=== PATIENT | female | born 1930 | race Caucasian/White ===

== ENCOUNTER 2017-01-31 07:05 | Outpatient (CLI) | payer MEDICARE, OTHER ==
[~2017-01-31] VITALS: Ht 177.8 cm; Wt 122.7 kg
[2017-01-31] MEDS ORDERED: BACTRIM DS TABL1 TAB PO (07:56)
[2017-01-31] MEDS ORDERED: LISINOPRIL10 MG PO (07:56)
[2017-01-31] MEDS ORDERED: OMEPRAZOLE40 MG PO (07:57)
[2017-01-31] MEDS ORDERED: HYDROCHLOROTH12.5 M1 PO (07:57)
[2017-01-31] MEDS ORDERED: COUMADIN3 MG PO (07:58)
[2017-01-31] MEDS ORDERED: K-DUR20 MEQ PO (07:58)
[2017-01-31 08:14] VITALS: BP 151/74; Ht 177.8 cm; Wt 122.7 kg
--- NOTE | 2017-01-31 08:59 | NUR ---
SPOKE WITH PHARMACIST, GEOVANNY, ABOUT THE RUN TIME OF GENTAMICIN. WAS TOLD THAT IT CAN BE INFUSED WITHIN 30 MINUTES. GENT INFUSING TO LEFT FA, IV, PT TOLERATING.
[2017-01-31 09:39] LABS: INR 2.7 (0.85-1.17); PROTIME 30.7 SECONDS (11.6-15.0)
== END 2017-01-31 09:45 | disposition home or self-care (01) ==
LOC: D.OPS 07:05 → D.LAB 07:05 → D.SDCHOLD 07:05 → D.LAB 08:00 → D.OPS 09:45
PROVIDERS: Internal Medicine Cardiovascular Disease
DX: Z79.01 Long term (current) use of anticoagulants (principal)

== ENCOUNTER 2017-06-08 23:11 | Observation (INO) | payer MEDICARE, OTHER ==
[~2017-06-08] VITALS: Ht 177.8 cm; Wt 77.3 kg
[~2017-06-08 23:11] MED LIST: BACTRIM DS TABL1 TAB PO; COUMADIN3 MG PO; HYDROCHLOROTH12.5 M1 PO; K-DUR20 MEQ PO; LISINOPRIL10 MG PO; OMEPRAZOLE40 MG PO
[2017-06-09 00:06] LABS: APPEARANCE HAZY (CLEAR); BILIRUBIN NEGATIVE (NEGATIVE); COLOR DK YELLOW (YELLOW); GLUCOSE NEGATIVE (NEGATIVE); KETONE NEGATIVE (NEGATIVE); LEUKOCYTE ESTERASE 2+ (NEGATIVE); NITRITE NEGATIVE (NEGATIVE); PROTEIN TRACE mg/dL (NEGATIVE); SPECIFIC GRAVITY 1.005 (1.005-1.020); UROBILINOGEN NORMAL (NORMAL)
[2017-06-09 00:07] LABS: BACTERIA MANY /hpf (NONE SEEN); EPITHELIAL CELLS 0-5 /hpf (0-5); WHITE CELLS - URINE >50 /hpf (0-5)
[2017-06-09 00:22] LABS: BASOPHILS 0.8 % (0-2); EOSINOPHILS 4.7 % (0-7); HEMATOCRIT 37.3 % (36.0-48.0); HEMOGLOBIN 12.4 g/dL (12-16); LYMPHOCYTES 17.3 % (15-50); MCH 32.5 pg (26.0-34.0); MCHC 33.2 g/dL (31.0-37.0); MCV 97.6 fL (80.0-100.0); MONOCYTES 11.8 % (2-11); NEUTROPHILS 65.4 % (40-80); PLATELET COUNT 190 10x3/uL (130-400); RBC 3.82 10x6/uL (4.00-5.40); RDW 13.7 % (11.5-14.5); WBC 5.2 10x3/uL (4.8-10.8)
[2017-06-09 00:38] LABS: ALBUMIN 3.7 g/dL (3.4-5.0); ANION GAP 10.9 mmol/L (8-16); BILIRUBIN - TOTAL 0.3 mg/dL (0.2-1.3); CALCIUM 8.9 mg/dL (8.5-10.1); CARBON DIOXIDE 26.4 mmol/L (21.0-32.0); CREATININE - SERUM 1.8 mg/dL (0.6-1.3); MAGNESIUM - SERUM 1.9 mg/dL (1.8-2.4); POTASSIUM - SERUM 4.3 mmol/L (3.5-5.1); PROTEIN - SERUM 6.4 g/dL (6.4-8.2)
[2017-06-09 03:32] VITALS: BP 116/49; Ht 177.8 cm; Wt 77.3 kg
--- NOTE | 2017-06-09 06:00 | NUR ---
PATIENT PULLED OUT HER IV. I TRIED TO START IV X'S 2 UNSUCCESSFUL ATTEMPTS.
--- NOTE | 2017-06-09 06:30 | NUR ---
ROBBIE DONAHUE TRIED TO START IV, UNSUCCESSFUL.
--- NOTE | 2017-06-09 07:25 | NUR ---
ROBBIE PEREZ WENT IN ROOM TO TRY TO START IV, PATIENT REFUSED.
--- NOTE | 2017-06-09 08:13 | NUR ---
PT VERY DISORIENTED THIS AM TO PLACE AND TIME. TRIED TO REORIENT BUT WILL NOT ANSWER QUESTIONS. TRYING TO SWING AT NURSES AND SPIT. KEEPS UNDRESSING SELF. BED ALARM ON FOR SAFETY AND NURSING STAFF STAYING AT BEDSIDE. CALL PLACE TO AND DR BHARDWAJ
--- NOTE | 2017-06-09 09:00 | NUR ---
RECIEVED PT DURING MORNING REPORT, PT BED ALARMING, WHEN ENTERING THE ROOM THE PT WAS ON THE SIDE OF BED, PT WAS VERY COMBATIVE AND UNCOOPERATIVE, SAT WITH PT UNTIL RELIEVED BY EFFIE CROOK RN, REFERRED TO NOTE ENTERED BY THAT NURSE. CALLED DR. LINARES AND RECIEVED ORDERS FOR IM HALDOL 5MG Q2 HOURS PRN FOR AGGITATION. MEDICATION ADMINISTRATION GIVEN. PT RETURNED TO BED WITH BED ALARM ON AND ALY ALARM. WILL CONTINUE TO MONITOR.
--- NOTE | 2017-06-09 09:31 | NUR ---
CM SPOKE WITH PATIENT'S SON (MAURA) SPOKE WITH HIM ABOUT THE PROCESS TO GET TO [facility]. I EXPLAINED TO HIM THAT I WOULD LIKE TO HAVE TABBITHA WITH [facility] CALL HIM AND GIVE HIM THE PROCESS TO GET HER ADMITTED. MAURA NUMBER [phone]
[2017-06-09] MEDS ORDERED: Levaquin PO (11:23)
[2017-06-09] MEDS ORDERED: HALDOL5 MG/ML IM (11:23)
[2017-06-09 12:48] VITALS: BP 145/75
--- NOTE | 2017-06-09 14:11 | NUR ---
REPORT CALLED TO ROBBIE CRUZ AT THIS TIME, PT AWAITING TRANSFER TO [facility].
--- NOTE | 2017-06-09 15:26 | NUR ---
PT DISCHARGED TO SNF AT THIS TIME.
== END 2017-06-09 15:27 | disposition short-term general hospital (02) ==
LOC: D.ER 23:11 → D.MS 06-09 01:40 → OBSVTIME 06-09 01:40 → D.MS 06-09 15:27
PROVIDERS: Emergency Medicine; ADMIT Family Medicine Adult Medicine
DX: N17.9 Acute kidney failure, unspecified (principal); E86.0 Dehydration; G30.1 Alzheimer's disease with late onset; F02.81 Dementia in other diseases classified elsewhere, unspecified severity, with behavioral disturbance; I10 Essential (primary) hypertension; I25.10 Atherosclerotic heart disease of native coronary artery without angina pectoris; I48.91 Unspecified atrial fibrillation; E72.4 Disorders of ornithine metabolism; K21.9 Gastro-esophageal reflux disease without esophagitis; I35.0 Nonrheumatic aortic (valve) stenosis; Z87.891 Personal history of nicotine dependence

== ENCOUNTER 2017-06-09 15:57 | Inpatient (IN) | payer MEDICARE, OTHER ==
[~2017-06-09] VITALS: Ht 177.8 cm; Wt 98.0 kg
--- NOTE | 2017-06-09 15:30 | NUR ---
PATIENT ADMITTED TO [facility] FROM MED 2 SHE HAS HAD INCREASED CONFUSION, SHE DOES HAVE A HX OF DEMENTIA, BUT SHE HAS RECENTLY HAD A UTI AND SHE HAS BECOME WORSE THEN THE UTI CLEARED PER HER PCP, BUT THEN THEY PUT IN A FLOEY CATH 4 DAYS AGO. PATIENT HAS HAD TO SELF CATH FOR ABOUT 20 YEARS. UNSURE REASON FOR INDWELLING CATH. PATIENT NOW HAS ANOTHER UTI. ON ADMIT PATIENT IS SLEEPING FROM A HALDOL INJECTION SHE RECEIVED THIS AM. FAMILY IS HERE WITH HER TO SIGN CONSENTS AND ANSWER QUESTIONS. FAMILY SAYS PATIENT GETS PARANOID, ACCUSATORY, SAYS SPOUSE IS TRYING TO KILL HER, SHE FIGHTS, SHE BITES, SHE HITS, CURSES, SHE HAS TRIED TO ESCAPE ON THE MED FLOOR, SHE DENIES DEMENTIA. NURSE GIVING REPORT SAYS PATIENT HAS BEEN FIGHTING AND PARANOID AND REFUSING MEDS SAYING NURSES ARE TRYING TO POISON HER. PATIENT DOES HAVE A SCAR FROM HEART SURGERY ON HER CHEST, SHE HAS A RIGHT SHOULDER SCAR FROM ROTATOR CUFF REPAIR, SHE HAS A SCAR TO LEFT HIO FROM HIP REPLACEMENT, BILAT LOWER EXTREMITIES SLIGHTLY EDEMATOUS.
[~2017-06-09 15:57] MED LIST changes: +HALDOL5 MG/ML IM; +Levaquin PO
[2017-06-09 18:12] VITALS: BP 140/83; BMI 31.4
[2017-06-09 19:58] VITALS: BP 207/119
--- NOTE | 2017-06-10 04:27 | NUR ---
B) Patient alert and oriented to self, calm and quiet, keeping away from noise in day room, confused and unaware of surroundings, I) PRN medications only this shift, redirected as needed, R) Calm and cooperative, resting in bed now, P) Contine plan of care.
[2017-06-10 06:48] LABS: INR 1.97 (0.85-1.17); PROTIME 22.4 SECONDS (11.6-15.0)
[2017-06-10 06:59] LABS: HEMOGLOBIN A1C 6.5 % (4.8-6.0)
[2017-06-10 07:11] LABS: CHOL - HDL RATIO 2.4 ratio (2.3-4.1); LDL-HDL RATIO 1.2 ratio (1.5-3.5); THYROID STIMULATING HORMONE 3.17 uIU/mL (0.36-3.74)
[2017-06-10 09:50] VITALS: BP 154/82
[2017-06-10 13:30] VITALS: BMI 31.2
[2017-06-10 20:37] VITALS: BP 173/111
[2017-06-10 20:55] VITALS: BP 173/111
--- NOTE | 2017-06-11 04:19 | NUR ---
B) patient alert and oriented to self, unaware of where she is or why she is here, watching TV, very confused, asking for her at times, I) Administered scheduled medications, monitored for safety and falls, redirected as needed, R) Medication compliant, poor retention of information, difficult to orient to plance, P) Continue plan of care.
[2017-06-11 07:00] VITALS: BP 159/86
--- NOTE | 2017-06-11 13:42 | NUR ---
ALERT AND ORIENTED TO SELF,HOSPITAL AND YEAR.DOES NOT KNOW WHY SHE IS HERE. HAS CHRONIC GAGNON BUT DOES NOT UNDERSTAND URINE FLOWS CONTINUOUSLY THROUGH IT. REQUIRES ASSIST OF 2 TO TRANSFER FROM CHAIR TO WC.NO AGGRESSION OBSERVED TODAY.WILL CONTINUE WITH PLAN OF CARE,MONITOR FOR CHANGES AND SAFETY.
[2017-06-11 20:50] VITALS: BP 168/81
--- NOTE | 2017-06-11 21:04 | NUR ---
RECEIVED IN BEDROOM. VERY CONFUSED. RESTING IN BED EYES OPEN. CALM AND COOPERATIVE WITH CARE AND ASSESSMENTS. NO SIGNS OF AGGRESSION. REDIRECT AND REORIENT NEEDED. RESTING IN BED EYES CLOSED AT THIS TIME. CONTINUE PLAN OF CARE
[2017-06-12 07:00] VITALS: BP 141/79
[2017-06-12 07:10] LABS: INR 1.65 (0.85-1.17); PROTIME 19.5 SECONDS (11.6-15.0)
[2017-06-12 11:11] LABS: FOLATE (FOLIC ACID) - SERUM 7.3 ng/mL (>3.0)
--- NOTE | 2017-06-12 13:45 | PSY ---
PATIENT NAME:WINSTON HERMOSILLO MEDICAL RECORD: [id number] : 32 LOCATION:[facility] ADMISSION DATE: 06/09/17 ACCOUNT: [id number] PSYCHIATRIC EVALUATION DATE OF EVALUATION: 06/10/17 IDENTIFYING DATA: The patient is 86 years old and she is admitted to the hospital on a voluntary basis. CHIEF COMPLAINT: Aggression. HISTORY OF PRESENT ILLNESS: The patient apparently lives at home with her family. Apparently, she has had some trouble functioning for a long time, but recently has become increasingly confused and associated with the confusion, she has become aggressive, hitting, biting and scratching her family for reasons that are unknown. When asked about this, she becomes distressed and says it never happened. She cannot explain why someone would say that. PAST MEDICAL HISTORY: Significant for hypertension, atrial fibrillation, aortic stenosis, coronary artery bypass grafting, hysterectomy, coronary artery bypass grafting and valve replacement. PAST PSYCHIATRIC HISTORY: Unknown. The patient clearly has dementia and it is clearly not new. Yet, she is not taking anti-dementia medications and has no listing of this in the scant records that I have available to me. FAMILY HISTORY: Unknown. ALLERGIES: MORPHINE. CURRENT MEDICATIONS: Include Levaquin, lisinopril, hydrochlorothiazide, Coumadin and potassium. SOCIAL HISTORY: The patient is . She does have adult children who live with her. She has no history of drug or alcohol abuse. She has an indwelling Saldana catheter for reasons that I do not know and she cannot explain. She has no active thoughts of harming herself or others or psychotic symptoms. ASSETS: Supportive family members. LIABILITIES: Limited insight. DIAGNOSTIC IMPRESSION: AXIS I: Senile dementia of the Alzheimer's type with behavioral disturbances. AXIS II: None. AXIS III: Hypertension, coronary artery disease, aortic stenosis and atrial fibrillation. AXIS IV: Moderate stressors. AXIS V: Global assessment of functioning is 30. PLAN: At this time, the patient is admitted to the hospital secondary to aggressive behavior associated with a dementing illness. She will be treated with both memory enhancing and mood stabilizing medications. She will be monitored for clinical changes associated with the use of the medications. Her long-term prognosis is guarded. TRANSINT:[id number] Voice Confirmation ID: [id number] DOCUMENT ID: [id number] CRUZ TORRES MD at 1345 CC: [id number] DICTATION DATE: 06/10/17 1246 CLARIFICATION OPERATOR: 06/10/17 1802 ADM IN [place] [id number] [place] [id number]
--- NOTE | 2017-06-12 14:00 | NUR ---
ASSESSMENT COMPLETED. COMPLIANT WITH TAKING MEDS. CONTINUE PLAN OF CARE.
--- NOTE | 2017-06-12 14:08 | NUR ---
Nutrition Follow Up: Chart reviewed. Pt is eating 63% meal avg on a regular diet. Wt stable. Meds and labs reviewed. Rec continue current diet. RD following.
[2017-06-12 19:31] VITALS: BP 192/84
--- NOTE | 2017-06-12 23:18 | NUR ---
RECEIVED IN DAYROOM. SITTING IN RECLINER WITH PEERS BY SIDE. NOT SOCIALIZING. CALM AND COOPERATIVE WITH CARE AND ASSESSMENT. NO SIGNS OF AGGRESSION. GAGNON INTACT. NO SIGNS OF PARANOIA. REDIRECT AND REORIENT NEEDED. RESTING IN BED WITH EYES CLOSED AT THIS TIME. CONTINUE PLAN OF CARE.
[2017-06-13 03:09] LABS: RAPID PLASMA REAGIN Non Reactive (Non Reactive)
[2017-06-13 09:21] VITALS: BP 132/84
--- NOTE | 2017-06-13 10:00 | NUR ---
B) ALERT AND ORIENTED TO SELF ONLY, VERY CONFUSED AND UNAWARE OF SURROUNDINGS, BUT SHE IS CALM AND COOPERATIVE WITH ASSESSMENT AND CARE. I) ADMINISTERED SCHEDULED MEDICATIONS, REDIRECT AND REORIENT FREQUENTLY. R) MEDICATION COMPLIANT, ISOLATES FROM PEERS. P) CONTINUE PLAN OF CARE.
--- NOTE | 2017-06-13 14:04 | PN ---
PATIENT:WINSTON HERMOSILLO MEDICAL RECORD: [id number] LOCATION:[facility]112 ADMISSION DATE: 06/09/17 PROGRESS NOTE DATE OF SERVICE: 06/12/2017 SUBJECTIVE: The patient's case was discussed with staff. She has no new complaint. OBJECTIVE: The patient is in good behavioral control with limited insight about her condition. She is severely impaired cognitively. She continues to have some paranoid beliefs. Apparently, this is not new. When asked about it, she becomes very guarded. ASSESSMENT: No change in diagnoses. PLAN: The patient will be treated with Trilafon at a dose of 2 mg at bedtime. Trilafon is being used to treat her underlying paranoid symptoms. She will be monitored for clinical changes associated with its use. TRANSINT:[id number] Voice Confirmation ID: [id number] DOCUMENT ID: [id number] CRUZ TORRES MD at 1404 CC: [id number] DICTATION DATE: 06/12/17 1354 HOSPITAL ADMINISTRATOR: 06/12/17 1428 ADM IN [place] [id number] [place] [address]
[2017-06-13 20:00] VITALS: BP 130/79
--- NOTE | 2017-06-13 20:34 | NUR ---
RECEIVED IN DAYROOM. SITTING QUIETLY IN CHAIR. NOT SOCIALIZING WITH PEERS. CALM AND COOPERATIVE WITH CARE AND ASSESSMENTS. NO SIGNS OF AGGRESSION. GAGNON INTACT. REDIRECT AND REOIENT NEEDED. CONTINUE TO SIT QUIETLY IN CHAIR. CONTINUE PLAN OF CARE
[2017-06-14 09:23] VITALS: BP 117/68
--- NOTE | 2017-06-14 13:18 | NUR ---
B) PATIENT IS AWAKE AND ALERT SHE IS CONFUSED SHE ONLY KNOWS HER NAME, SHE HAS NO INSIGHT INTO SITUATION. SHE HAS A GAGNON AND IT IS DRAINING CLEAR BRANDON URINE. SHE CAN SELF PROPEL IN HER W/C. I) PROVIDE PRESCRIBED MEDS. R) PATIENT IS COMPLIANT WITH MEDS. P) CONTINUE POC.
--- NOTE | 2017-06-14 18:09 | NUR ---
PATIENT'S SPOUSE CALLED AND WANTED TO KNOW HOW SHE IS DOING EXPLAINED TO HIM THAT SHE REMAINS CONFUSED. PATIENT'S SPOUSE ASKED WHAT THE DR'S PRONOSIS OR TESTING REVEALED. EXPLAINED TO HIM THAT SHE SCORED 7/30 ON A DEMENTIA AND MENTAL EXAM CALLED [facility], ALSO EXPLAINED TO HIM THAT SHE WILL NEED 24/7 CARE AND CAN NOT BE ALONE. THIS NEWS UPSET HIM A BIT AND SAID "SO SHE WILL NEVER SNAP OUT OF THIS" EXPLAINED TO HIM THAT "NO, HER DEMENTIA IS PROGRESSING AND THAT HE SHOULD PROBABLY READ SOME MATERIAL ABOUT IT THE DISEASE PROCESS DOES PROGRESS" PATIENTS SPOUSE WAS SURPRISED AND SAID "SO THAT DOES NOT MEAN SHE WILL NEED TO HAVE SOMEONE WITH HER ALL THE TIME DOES IT?" EXPLAINED TO HIM "YES, SHE WILL PROBABLY NEED TO BE IN A FACILITY SHE CAN NOT BE ALONE D/T HER DECREASING MEMORY THAT FOR HER SAFETY IT IS BEST SO THAT SHE WILL NOT TRY TO RUN AWAY, FALL, OR TRY TO COOK." AGAIN THE INFORMATION UPSET HIM A GREAT DEAL, AFTER HE SPOKE TO ME HE DID SPEAK TO HIS .
[2017-06-14 20:00] VITALS: BP 146/84
--- NOTE | 2017-06-15 02:30 | NUR ---
B) Patient is alert and oriented to self only, exit seeking, trying to push outside doors open, very confued and unaware of where she is, I) Administered scheduled medications, monitored for safety, R) Medication compliant, resting quietly in bed P) Continue plan of care.
[2017-06-15 10:41] VITALS: BP 113/55
--- NOTE | 2017-06-15 12:47 | NUR ---
B) PATIENT IS CALM AND PLEASANT, SHE IS CONFUSED, SHE CAN NOT FOLLOW SIMPLE DIRECTION, SET AM PILLS IN FRONT OF HER WITH HER WATER AND PATIENT JUST LOOKED AT THEM, HAD TO ASSIST PATIENT BY GIVING HER ONE BY ONE WITH HER WATER. PATIENT CONTINUES TO HAVE A GAGNON CATH THAT IS DRAINING BRANDON URINE. PATIENT DOES STAND TO HELP TRANSFER. I) PROVIDE PRESCRIBED MEDS. R) PATIENT IS COMPLIANT WITH MEDS AND UNIT MILIEU. P) CONTINUE POC.
--- NOTE | 2017-06-15 13:25 | NUR ---
RD follow up note, chart reviewed pt currently with good po intake on regular diet. meds reviewed to include but not limited to warfarin, simethicone florjen. no new bm noted, brakedn 18 skin noted to have bruises on arms, and noted pt to be confused. no changes at this time. due to pt dx, if pt consumes less than 75% recommend offering shake. RD to follow
[2017-06-15 20:02] VITALS: BP 139/79
--- NOTE | 2017-06-16 03:35 | NUR ---
B) Patient is alert and oriented to self restless and anxious at times, ambulates in wheelchair. I) Administered scheduled medications, redirected as needed, monitored for safety. R) Medication compliant, cooperative with care and assessment, P) Continue plan of care.
[2017-06-16 07:31] LABS: INR 1.99 (0.85-1.17); PROTIME 22.6 SECONDS (11.6-15.0)
--- NOTE | 2017-06-16 08:23 | NUR ---
LATE ENTRY FROM 06/15 SW MET WITH PT'S SON AND TO DISCUSS DISCHARGE PLANS AND DISEASE PROCESS. PT'S , OLGA, VERBALIZED UNDERSTANDING OF PT'S CONDITION AND DISCUSSION.
[2017-06-16 08:31] VITALS: BP 96/69
--- NOTE | 2017-06-16 14:00 | NUR ---
PATIENT IS TRYING NOT TO STAND TO HELP STAFF TO ASSIST HER ON THE TOILET. TRIED TO EXPLAIN TO HER THAT SHE NEEDS TO STAND AND WALK OR SHE WILL LOSE THE MUSCLE USE IN HER LEGS. PATIENT SAYS "I KNOW, BUT I DON'T WANT TO WALK."
[2017-06-16 19:30] VITALS: BP 155/83
--- NOTE | 2017-06-17 04:05 | NUR ---
B) Patient is alert and oriented to self, calm and sitting in the day room, I) Administered scheduled medications, monitored for safety, R) Medication compliant, assisted with transfers, P) Continue plan of care.
[2017-06-17 08:00] VITALS: BP 90/60
--- NOTE | 2017-06-17 18:38 | NUR ---
ORIENTED TO SELF ONLY.HAS Neovacs PATENT TO GRAVITY.PROPELLS SELF IN WHEELCHAIR.NO COMBATIVENESS OR AGGRESSION OBSERVED.IS COMPLIANT WITH MEDS.WILL CONTINUE WITH PLAN OF CARE,MONITOR FOR CHANGES AND SAFETY.
[2017-06-17 19:30] VITALS: BP 117/65
--- NOTE | 2017-06-18 02:23 | NUR ---
B) Patient is alert and oriented to self, sitting quietly by herself I) Administered scheduled medications, monitored for safety R) Medications compliant, no behaviors noted, P) Continue plan of care.
[2017-06-18 07:47] VITALS: BP 119/66
[2017-06-18 13:00] VITALS: Ht 177.8 cm; Wt 98.0 kg
--- NOTE | 2017-06-18 17:19 | NUR ---
IS ORIENTED TO SELF ONLY.COMPLIANT WITH MEDS.NO AGGRESSION OBSERVED.VERY QUITE,SITS AND OBSERVES SURROUNDINGS.WILL CONTINUE WITH PLAN OF CARE,MONITOR FOR CHANGES AND SAFETY.
[2017-06-18 19:30] VITALS: BP 119/70
--- NOTE | 2017-06-18 20:50 | NUR ---
RECEIVED IN DAYROOM. SITTING IN RECLINER KEEPING TO HERSELF. NOT SOCIALIZING WITH STAFF OR PEERS. CALM AND COOPERATIVE WITH CARE AND ASSESSMENTS. NO SIGNS OF AGGRESSION. ENCOURAGE TO EXPRESS NEEDS. CONTINUES TO SIT QUIETLY IN RECLINER. CONTINUE PLAN OF CARE
[2017-06-19 08:46] VITALS: BP 102/64
--- NOTE | 2017-06-19 13:25 | NUR ---
Alert and oriented to self and some what to place, calm and cooperative with care. Medication compliant. No increased confusion or aggression. Sits quietly in W/C with no compliants or distress. Good behavior control with no incident. Continue with plan of care and monitoring behavior. Safety maintained.
[2017-06-19 16:47] LABS: INR 1.78 (0.85-1.17); PROTIME 20.7 SECONDS (11.6-15.0)
[2017-06-19 19:53] VITALS: BP 123/83
--- NOTE | 2017-06-19 20:50 | NUR ---
RECEIVED IN DAYROOM. SITTING IN A RECLINING CHAIR. NOT SOCIALIZING AT THIS TIME. CALM AND COOPERATIVE WITH CARE AND ASSESSMENTS. NO SIGNS OF AGGRESSION. REDIRECT AND REORIENT NEEDED. RESTING IN BED EYES CLOSED AT THIS TIME. CONTINUE PLAN OF CARE
[2017-06-20 07:00] VITALS: BP 113/70
--- NOTE | 2017-06-20 09:21 | NUR ---
B) PATIENT IS AWAKE AND ALERT, SHE DOES NOT FOLLOW DIRECTION WELL, SHE NEEDS SLOW, SIMPLE STEPS TO FOLLOW, PATIENT HAS NOT MADE ANY STATEMENTS THIS AM ABOUT DELUSIONS OR HALLUCINATIONS, WILL MONITOR SPRINKLER FITTER APPRENTICE SAID SHE DID LAST NIGHT. PATIENT HAS NOT BEEN AGGRESSIVE TODAY. SHE HAS AN INDWELLING GAGNON CATHETER THAT IS DRAINING CLEAR BRANDON UNRINE. PATIENT DOES WALK ON OCCASION WITH P.T. I) PROVIDE PRESCRIBED MEDS. R) PATIENT IS COMPLIANT WITH MEDS. P) CONTINUE POC.
--- NOTE | 2017-06-20 13:38 | PN ---
PATIENT:WINSTON HERMOSILLO MEDICAL RECORD: [id number] LOCATION:[facility] ADMISSION DATE: 06/09/17 PROGRESS NOTE DATE OF SERVICE: 06/19/2017 SUBJECTIVE: The patient's case was discussed with staff. She has no new complaint. OBJECTIVE: The patient is in good behavioral control, but very confused. She has almost no short term memory. She has not been aggressive and she has had no psychotic symptoms. ASSESSMENT: No change in diagnoses. PLAN: Current medicines and therapies have been reviewed and will be maintained. Her long-term prognosis is guarded. I anticipate she can be transitioned out of the hospital soon if this level of improvement is maintained. TRANSINT:[id number] Voice Confirmation ID: [id number] DOCUMENT ID: [id number] CRUZ TORRES MD at 1338 CC: [id number] DICTATION DATE: 06/19/17 1242 LIQUOR COMMISSIONER: 06/19/17 1305 ADM IN [place] [id number] [place] [address]
--- NOTE | 2017-06-20 13:38 | PN ---
PATIENT:WINSTON HERMOSILLO MEDICAL RECORD: [id number] LOCATION:[facility] ADMISSION DATE: 06/09/17 PROGRESS NOTE DATE OF SERVICE: 06/14/2017 SUBJECTIVE: The patient's case was discussed with staff. She has no new complaint. OBJECTIVE: The patient is severely impaired cognitively, but she is pleasant. She has very limited insight about her situation and generally is having difficulty following directions, but again she is not threatening or aggressive. ASSESSMENT: No change in diagnoses. PLAN: Brief supportive and educational interventions were made. Fpc prognosis is guarded. TRANSINT:[id number] Voice Confirmation ID: [id number] DOCUMENT ID: [id number] CRUZ TORRES MD at 1338 CC: [id number] DICTATION DATE: 06/14/17 1251 BOX SPRING FRAME BUILDER: 06/14/17 1341 ADM IN [place] [id number] [place] [id number]
--- NOTE | 2017-06-20 13:38 | PN ---
PATIENT:WINSTON HERMOSILLO MEDICAL RECORD: [id number] LOCATION:[facility] ADMISSION DATE: 06/09/17 PROGRESS NOTE DATE OF SERVICE: 06/15/2017 SUBJECTIVE: The patient's case was discussed with staff. She has no new complaint. OBJECTIVE: The patient is in good behavioral control. She has no thoughts of harming herself or others. She is severely impaired cognitively. ASSESSMENT: No change in diagnoses. PLAN: Brief supportive and educational interventions were made. Long-term prognosis is guarded. TRANSINT:[id number] Voice Confirmation ID: [id number] DOCUMENT ID: [id number] CRUZ TORRES MD at 1338 CC: [id number] DICTATION DATE: 06/15/17 1252 DIRECTOR OF SECURITY: 06/15/17 1306 ADM IN [facility] [address] [place] [address]
--- NOTE | 2017-06-20 13:38 | PN ---
PATIENT:WINSTON HERMOSILLO MEDICAL RECORD: [id number] LOCATION:[facility]112 ADMISSION DATE: 06/09/17 PROGRESS NOTE DATE OF SERVICE: 06/13/2017 SUBJECTIVE: The patient's case was discussed with staff. She has no new complaint. OBJECTIVE: The patient denies intent to harm herself or others. She is severely impaired cognitively. She did not display any paranoid symptoms today. ASSESSMENT: No change in diagnoses. PLAN: Supportive and educational interventions were made. Skilled Nursing prognosis is guarded. The patient is certainly in need of 80-bnwz-u-day supervision. She was tested by Dr. Andrews and scored in the severe range of impairment. TRANSINT:[id number] Voice Confirmation ID: [id number] DOCUMENT ID: [id number] CRUZ TORRES MD at 1338 CC: [id number] DICTATION DATE: 06/13/17 1418 AGRICULTURAL EQUIPMENT SALES ENGINEER: 06/13/17 1758 ADM IN [place] [id number] [place] [id number]
--- NOTE | 2017-06-20 13:38 | PN ---
PATIENT:WINSTON HERMOSILLO MEDICAL RECORD: [id number] LOCATION:[facility]112 ADMISSION DATE: 06/09/17 PROGRESS NOTE DATE OF SERVICE: 06/16/2017 SUBJECTIVE: The patient's case was discussed with staff. She has no new complaint. OBJECTIVE: The patient continues to have psychotic symptoms. She has very limited insight about her condition. ASSESSMENT: No change in diagnoses. PLAN: The patient is taking Trilafon for any psychotic affect. She has only had the medication for 2 nights. I will wait at least one more day before making an adjustment in that medication. TRANSINT:[id number] Voice Confirmation ID: [id number] DOCUMENT ID: [id number] CRUZ TORRES MD at 1338 CC: [id number] DICTATION DATE: 06/16/17 1247 DOBBY LOOMS PEGGER: 06/16/17 1411 ADM IN [facility] [address] [place] [address]
[2017-06-20] MEDS ORDERED: COUMADIN4 MG PO (14:05)
[2017-06-20] MEDS ORDERED: FLORAJEN3 CAPS460 MG PO (14:06)
[2017-06-20] MEDS ORDERED: MIRALAX17 GM PO (14:06)
[2017-06-20] MEDS ORDERED: NAMENDA5 MG PO (14:06)
[2017-06-20] MEDS ORDERED: PERPHENAZINE2 MG PO (14:06)
[2017-06-20] MEDS ORDERED: GAS-X80 MG PO (14:06)
[2017-06-20 20:01] VITALS: BP 115/70
--- NOTE | 2017-06-20 20:23 | NUR ---
RECEIVED IN [facility]. SITTING IN A RECINING CHAIR WITH PEERS BY HER SIDE. NOT SOCIALIZING. CALM AND COOPERATIVE WITH CARE AND ASSESSMENTS. NO SIGNS OF AGGRESSION. GAGNON CATH INTACT. REDIRECT AND REORIENT NEEDED. TRANSFERE TO BED AT THIS TIME. CONTINUE PLAN OF CARE
[2017-06-21 08:00] VITALS: BP 114/62
--- NOTE | 2017-06-21 08:30 | NUR ---
Received pt in dining room, alert, calm, pleasant mood, med compliant, no aggression noted. Appetite good for b'fast. Cooperative Meds admin per orders and group therapy provided. Discharge teaching done. No adverse reaction noted to meds. Participates in group therapy as directed. Cont POC including medications and group therapy until discharge to LTC facility.
--- NOTE | 2017-06-21 14:47 | NUR ---
RD f/u note chart reviewed Pt continues to have an excelelnt intake on Regular diet. Meds reviewed. BM 06/09 wit no new BM documented since last note. GI noted to be WDP, SKIN WDP beck 19 noted to have some bruises. weight down slightly to 215 on 06/18 though not significantly. No changes at this time. Plan: continue current diet, continue current plan of care, and RD to follow
--- NOTE | 2017-06-21 15:10 | NUR ---
Pt calm, alert, pleasant mood, cooperative, med compliant, personal belongings returned to pt.,no s/s distress, denies pain, meds admin per orders, assisted to exit door via w/c and transported to n/h via n/h van.
--- NOTE | 2017-06-21 16:14 | PN ---
PATIENT:WINSTON HERMOSILLO MEDICAL RECORD: [id number] LOCATION:[facility] ADMISSION DATE: 06/09/17 PROGRESS NOTE DATE OF SERVICE: 06/20/2017 SUBJECTIVE: The patient's case was discussed with staff. She has no new complaint. OBJECTIVE: The patient is in good behavioral control, but severely impaired cognitively. She has not been aggressive. Her long-term prognosis is guarded. I anticipate that she can be transitioned out of the hospital tomorrow if this level of improvement is maintained. TRANSINT:[id number] Voice Confirmation ID: [id number] DOCUMENT ID: [id number] CRUZ TORRES MD at 1614 CC: [id number] DICTATION DATE: 06/20/17 1349 KITCHEN SUPERVISOR: 06/20/17 1628 ADM IN [facility] [address] [place] [address]
--- NOTE | 2017-06-22 13:28 | PN ---
PATIENT:WINSTON HERMOSILLO MEDICAL RECORD: [id number] LOCATION:[facility] ADMISSION DATE: 06/09/17 PROGRESS NOTE DATE OF SERVICE: 06/21/2017 SUBJECTIVE: The patient's case was discussed with staff. She has no new complaint. OBJECTIVE: The patient denies intent to harm herself or others. She tolerates her medicines well. She is severely impaired cognitively, but is displaying no symptoms that would make her dangerous to herself or others, other than needing supervision structure and a safe environment. She is going to be transitioned out of the hospital soon. In fact, I think the van from the [facility] is coming sometime this afternoon. Followup will be with her primary care [facility] physician. I think her prognosis is fair; however, must be remembered that this is a progressive disease that will worsen with time. TRANSINT:[id number] Voice Confirmation ID: [id number] DOCUMENT ID: [id number] CRUZ TORRES MD at 1328 CC: [id number] DICTATION DATE: 06/21/17 1646 GRANT COORDINATOR: 06/21/172106 DIS IN 06/21/17 [facility] [address] [place] [address]
== END 2017-06-21 15:30 | DRG 57 ==
LOC: D.PSYCH 15:57
PROVIDERS: Family Medicine; ADMIT Psychiatry & Neurology Psychiatry
DX: G30.1 Alzheimer's disease with late onset (principal); F02.81 Dementia in other diseases classified elsewhere, unspecified severity, with behavioral disturbance; N39.0 Urinary tract infection, site not specified; B95.2 Enterococcus as the cause of diseases classified elsewhere; I48.91 Unspecified atrial fibrillation; Z95.2 Presence of prosthetic heart valve; K59.00 Constipation, unspecified; Z87.891 Personal history of nicotine dependence; E66.01 Morbid (severe) obesity due to excess calories; G83.9 Paralytic syndrome, unspecified; I10 Essential (primary) hypertension; K21.9 Gastro-esophageal reflux disease without esophagitis

== ENCOUNTER → 2017-07-12 13:59 | Outpatient (CLI) | payer MEDICARE, OTHER ==
[2017-06-18 13:00] VITALS: BMI 31.0
[~2017-07-12 13:59] MED LIST changes: +AMOXICILLIN875 MG PO; +ANUSOL-HC25 MG RC; +ATIVAN0.5 MG PO; +COUMADIN4 MG PO; +FLORAJEN3 CAPS460 MG PO; +GAS-X80 MG PO; +MIRALAX17 GM PO; +NAMENDA5 MG PO; +PERPHENAZINE2 MG PO
== END | disposition home or self-care (01) ==
LOC: D.LABREF 13:59
DX: N39.0 Urinary tract infection, site not specified (principal)

== ENCOUNTER 2017-07-19 13:50 | Inpatient (IN) | payer MEDICARE, OTHER ==
[~2017-07-19 13:50] MED LIST changes: -AMOXICILLIN875 MG PO; -ANUSOL-HC25 MG RC; -ATIVAN0.5 MG PO
[2017-07-19 14:55] LABS: BASOPHILS 0.7 % (0-2); EOSINOPHILS 3.3 % (0-7); HEMATOCRIT 37.2 % (36.0-48.0); HEMOGLOBIN 12.3 g/dL (12-16); IMMATURE GRANULOCYTES 0.2 % (0-5); LYMPHOCYTES 17.6 % (15-50); MCH 32.5 pg (26.0-34.0); MCHC 33.1 g/dL (31.0-37.0); MCV 98.2 fL (80.0-100.0); MONOCYTES 7.3 % (2-11); NEUTROPHILS 70.9 % (40-80); RBC 3.79 10x6/uL (4.00-5.40); RDW 14.2 % (11.5-14.5); WBC 5.5 10x3/uL (4.8-10.8)
[2017-07-19 15:01] LABS: PLATELET COUNT 229 10x3/uL (130-400)
[2017-07-19 15:04] LABS: APTT 30.2 SECONDS (22.8-39.4); INR 1.85 (0.85-1.17); PROTIME 21.4 SECONDS (11.6-15.0)
[2017-07-19 15:55] LABS: APPEARANCE HAZY (CLEAR); BILIRUBIN NEGATIVE (NEGATIVE); COLOR YELLOW (YELLOW); GLUCOSE NEGATIVE (NEGATIVE); KETONE NEGATIVE (NEGATIVE); NITRITE NEGATIVE (NEGATIVE); PROTEIN TRACE mg/dL (NEGATIVE); SPECIFIC GRAVITY 1.025 (1.005-1.020); UROBILINOGEN NORMAL (NORMAL)
[2017-07-19 15:56] LABS: BACTERIA MANY /hpf (NONE SEEN); RED CELLS - URINE 0-5 /hpf (0-5); WHITE CELLS - URINE >50 /hpf (0-5)
[2017-07-19 16:36] LABS: ALBUMIN 3.6 g/dL (3.4-5.0); ALKALINE PHOSPHATASE 118 U/L (46-116); ALT (SGPT) 28 U/L (10-68); BILIRUBIN - TOTAL 0.28 mg/dL (0.2-1.3); CALC OSMOLALITY 284 mosm/kg (275-300); CALCIUM 9.1 mg/dL (8.5-10.1); CARBON DIOXIDE 22.3 mmol/L (21.0-32.0); CHLORIDE - SERUM 104 mmol/L (98-107); CREATINE KINASE 581 UL (21-215); CREATININE - SERUM 1.5 mg/dL (0.6-1.3); GLUCOSE 134 mg/dL (74-106); POTASSIUM - SERUM 4.9 mmol/L (3.5-5.1); PRO BNP 1971 pg/mL (0-450); PROTEIN - SERUM 6.5 g/dL (6.4-8.2); SODIUM 138 mmol/L (136-145); UREA NITROGEN 31 mg/dL (7-18); eGFR NON AFRICAN AMERICAN 35 mL/min (90-120)
[2017-07-19 16:37] LABS: CKMB 10.3 U/L (0.0-3.6)
--- NOTE | 2017-07-19 20:02 | NUR ---
PATIENT ARRIVED FROM THE ER VIA STRETCHER, ALERT BUT DISORIENTED. BED ALARM IN PLACE, CALL LIGHT IN REACH.
[2017-07-19 22:06] VITALS: BP 100/38
[2017-07-20 01:54] VITALS: BP 89/51
[2017-07-20] MEDS ORDERED: ATIVAN0.5 MG PO (02:35)
[2017-07-20] MEDS ORDERED: BACTRIM DS TABL1 TAB PO (02:36)
--- NOTE | 2017-07-20 04:26 | NUR ---
PATIENT PULLED IV ACCESS FROM ARM, REFUSED TO HAVE ANOTHER IV PLACED. WILL TRY AGAIN AT A LATER TIME, NO IV MEDICATIONS ARE DUE. CALL LIGHT IN REACH.
[2017-07-20 05:00] LABS: HEMATOCRIT 33.6 % (36.0-48.0); HEMOGLOBIN 11.2 g/dL (12-16); LYMPHOCYTES 21.7 % (15-50); MCH 33.1 pg (26.0-34.0); MCHC 33.3 g/dL (31.0-37.0); MCV 99.4 fL (80.0-100.0); MEAN PLATELET VOLUME 9.1 fL (7.4-10.4); MONOCYTES 8.5 % (2-11); NEUTROPHILS 61.8 % (40-80); PLATELET COUNT 216 10x3/uL (130-400); RBC 3.38 10x6/uL (4.00-5.40); RDW 14.2 % (11.5-14.5)
[2017-07-20 05:03] LABS: WBC 4.1 10x3/uL (4.8-10.8)
[2017-07-20 05:13] LABS: ANION GAP 7.8 mmol/L (8-16); CALCIUM 9.1 mg/dL (8.5-10.1); CREATININE - SERUM 1.3 mg/dL (0.6-1.3); POTASSIUM - SERUM 4.5 mmol/L (3.5-5.1)
[2017-07-20 05:16] LABS: PROTIME 22.7 SECONDS (11.6-15.0)
--- NOTE | 2017-07-20 05:17 | NUR ---
CALL LIGHT IN REACH, WILL CONTINUE WITH PLAN OF CARE.
[2017-07-20 05:21] LABS: CARBON DIOXIDE 29.7 mmol/L (21.0-32.0)
[2017-07-20 06:17] VITALS: BP 74/40
--- NOTE | 2017-07-20 07:09 | NUR ---
AM ROUNDS - PT IN BED AND APPEARS TO BE SLEEPING AT THIS TIME WITH EQUAL AND NON LABORED BREATHING. MONITOR SHOWING SA WITH PVC, HR 66. ALY ALARM ON. GAGNON DRAINING. BED AT LOWEST POSITION. SIDE RAILS UP X2. CALL HAWKINS IN USE/REACH. WILL CONTINUE TO MONTIOR
[2017-07-20 08:00] VITALS: BP 135/66
[2017-07-20 12:00] VITALS: BP 110/51
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
[2017-07-20 16:00] VITALS: BP 161/59
--- NOTE | 2017-07-20 20:03 | NUR ---
PT LYING IN BED, AWAKE, ALERT, CONFUSED. DENIES ANY NEEDS. WILL POST SIGN ON DOOR AND NOTIFY SNELLER HAND THAT PTS DOOR IS NEVER TO BE CLOSED. BED ALARM AND ALY MAT ON. BED LOW, CALL LIGHT IN REACH, SIDE RAILS X 2, HOB 30 DEGREES.
[2017-07-20 20:10] VITALS: BP 95/52
--- NOTE | 2017-07-20 22:36 | NUR ---
PT HAS REFUSED ALL 21:00 MEDS FOR 07/20/17. PT BECAME AGITATED, DEMONSTRATED INCREASED CONFUSION, AND IS DIFFICULT TO REORIENT AT THIS TIME. I HAVE ENCOURAGED PT TO USE HER CALL LIGHT WHEN NEEDING ASSISTANCE, ALONG WITH DEMONSTRATING HOW TO USE HER CALL LIGHT, BUT PT IS UNABLE TO UNDERSTAND THIS. FOR SAFETY REASONS PTS BED IS LOW, SIDE RAILS X 2, HOB REMAINS @ 30 DEGREES, BED ALARM IS ON AND ALY MAT ALARM IS PLACED APPROPRIATELY UNDER PT AND ON. I HAVE NOTIFIED JAS CABELLO TO MAKE SURE PTS DOOR REMAINS OPEN AT ALL TIMES. WILL CONTINUE TO MONITOR PT CLOSELY.
[2017-07-21 00:34] VITALS: BP 122/54
[2017-07-21 04:32] VITALS: BP 133/46
--- NOTE | 2017-07-21 06:13 | NUR ---
PT LYING IN BED, RESTING COMFORTABLY, STILL REFUSING HER MEDICATION THIS MORNING. PT REMAINS CONFUSED AND DIFFICULT TO REORIENT. BED ALARM ON ALONG WITH ALY MAT UNDER PT. CONTINUE TO MONITOR PT CLOSELY. BED LOW, CALL LIGHT IN REACH, HOB 30 DEGREES.
[2017-07-21 06:27] LABS: BASOPHILS 0.9 % (0-2); EOSINOPHILS 6.1 % (0-7); HEMATOCRIT 35.7 % (36.0-48.0); HEMOGLOBIN 11.8 g/dL (12-16); IMMATURE GRANULOCYTES 0.2 % (0-5); LYMPHOCYTES 21.2 % (15-50); MCH 32.4 pg (26.0-34.0); MCHC 33.1 g/dL (31.0-37.0); MCV 98.1 fL (80.0-100.0); NEUTROPHILS 61.6 % (40-80); PLATELET COUNT 233 10x3/uL (130-400); RBC 3.64 10x6/uL (4.00-5.40); RDW 13.8 % (11.5-14.5); WBC 4.6 10x3/uL (4.8-10.8)
[2017-07-21 06:45] LABS: INR 1.87 (0.85-1.17); PROTIME 21.5 SECONDS (11.6-15.0)
[2017-07-21 06:55] LABS: ANION GAP 9.9 mmol/L (8-16); CALCIUM 9.2 mg/dL (8.5-10.1); POTASSIUM - SERUM 3.9 mmol/L (3.5-5.1)
--- NOTE | 2017-07-21 07:45 | NUR ---
UE TO MONITORAM ROUNDS - PT AWAKE IN BED AT THIS TIME. AT BEDSIDE AT THIS TIME. MONITOR SHOWING CONTROLLED AFIB, HR 78. NO IV AT THIS TIME. PT IS ON ROOM AIR. BED AT LOWEST POSITION. CALL HAWKINS IN USE/REACH. SIDE RAILS UP X2. NO NEEDS AT THIS TIME. WILL CONTINUE TO MONITOR
--- NOTE | 2017-07-21 08:55 | NUR ---
CONCENTS ARE SIGNED AND IN CHART. 2 TAP WATER EMEMAS, COMPLETE. WILL CONTINUE TO MONITOR
[2017-07-21 08:56] VITALS: BP 126/60
--- NOTE | 2017-07-21 11:01 | NUR ---
PRIOR TO PROCEDURE IV STARTED IN RT ARM 20 GAUGE NEEDLE GOOD BLOOD RETURN SALINE FLUSHED NO REDNESS OR SWELLING.
--- NOTE | 2017-07-21 11:19 | NUR ---
IV STARTED IN RIGHT HAND. 20G. 2 STICKS
[2017-07-21 15:42] VITALS: BP 115/42
--- NOTE | 2017-07-21 19:15 | NUR ---
SPOT WORKER TAKING VS. NO NEEDS OR DISCOMFORTS VOICED. WILL CONT PLAN OF CARE.
[2017-07-21 21:06] VITALS: BP 121/53
--- NOTE | 2017-07-21 21:45 | NUR ---
ADMIN SCHED MEDS WITH SIPS OF WATER AND SUPPOSITORIES PER ORDER. HOTEL CASINO FLOORPERSON ASSISTED WITH REPOSITIONING.
[2017-07-22 00:34] VITALS: BP 116/51
--- NOTE | 2017-07-22 03:07 | NUR ---
RESTING QUIETLY WITH EYES CLOSED. NO S/S OF DISCOMFORT. BED ALARM ON. LEFT DOOR OPEN TO MONITOR CLOSELY.
[2017-07-22 04:00] VITALS: BP 110/54
--- NOTE | 2017-07-22 07:10 | NUR ---
RECEIVED REPORT. ASSUMED CARE OF PATIENT. PATIENT TRYING TO CLIMB OUT OF BED. REORIENTATED TO PLACE, TIME AND SITUATION. RESP EVEN AND UNLABORED. NO DISTRESS.
[2017-07-22 07:48] LABS: BASOPHILS 2.2 % (0-2); EOSINOPHILS 4.4 % (0-7); HEMATOCRIT 35.9 % (36.0-48.0); HEMOGLOBIN 11.9 g/dL (12-16); LYMPHOCYTES 19.1 % (15-50); MCH 32.4 pg (26.0-34.0); MCHC 33.1 g/dL (31.0-37.0); MCV 97.8 fL (80.0-100.0); MEAN PLATELET VOLUME 9.1 fL (7.4-10.4); NEUTROPHILS 62.3 % (40-80); PLATELET COUNT 234 10x3/uL (130-400); RBC 3.67 10x6/uL (4.00-5.40); RDW 13.6 % (11.5-14.5); WBC 4.1 10x3/uL (4.8-10.8)
[2017-07-22 07:56] LABS: INR 1.86 (0.85-1.17); PROTIME 21.4 SECONDS (11.6-15.0)
[2017-07-22 07:59] LABS: CALCIUM 9.2 mg/dL (8.5-10.1); CARBON DIOXIDE 26.8 mmol/L (21.0-32.0); CREATININE - SERUM 0.9 mg/dL (0.6-1.3); POTASSIUM - SERUM 3.8 mmol/L (3.5-5.1)
[2017-07-22 08:00] VITALS: BP 133/71
--- NOTE | 2017-07-22 08:55 | NUR ---
[address] SCAN DUE TO PATIENT IS CONFUSED AND BEING UNCOOPERATIVE. PATIENT WANTING HER "DAD" CALLED. REORIENTED PATIENT. NOT EFFECTIVE. CALLED AND SPOKE TO PATIENTS . PATIENTS OLGA STATES THAT PATIENT IS NOT A VERY COOPERATIVE PERSON BUT HE KNEW ABOUT THE BARIUM ENEMA AND TO TELL THE PATIENT THAT HE WOULD LIKE FOR HER TO GO AHEAD AND HAVE THE PROCEDURE. RE-EXPLAINED TO PATIENT AND ATTEMPTED TO REORIENTE PATIENT. PATIENT REMAINS UNCOOPERATIVE BUT FINALLY STATES SHE WILL DO IT. PATIENT STATES THE TEST WILL KILL HER. REORIENTED PT. NOT EFFECTIVE. INSTRUCTED STAFF IN CT THAT ALL WE CAN DO IS TRY AND IF PATIENT CONTINUES TO BE UNCOOPERATIVE THEN BRING HER BACK TO THE UNIT. SPENT [address] TRYING TO REORIENTATE THIS PATIENT.
--- NOTE | 2017-07-22 10:02 | NUR ---
RECEIVED PATIENT BACK FROM [facility]IUM ENEMA AT 0950. RESTING IN BED WITH EYES OPEN. FAMILY AT BEDSIDE. STAFF REPORTS PATIENT WAS NOT COOPERATIVE WITH PROCEDURE SO THE COMPLETE EXAM WAS NOT COMPLETED.
--- NOTE | 2017-07-22 10:07 | NUR ---
ARM BAND PLACED TO RIGHT ANKLE TO PREVENT PATIENT FROM PULLING ARM BAND OFF. NO DISTRESS. NO EDEMA TO ANKLES.
--- NOTE | 2017-07-22 11:28 | NUR ---
CALLED PLACED FOR DR. MORELAND AT THIS TIME FOR POSSIBLE DISCHARGE INSTRUCTIONS.
--- NOTE | 2017-07-22 11:35 | NUR ---
RECEIVED DISCHARGE INSTRUCTIONS FROM DR. MONZON.
[2017-07-22] MEDS ORDERED: ANUSOL-HC25 MG RC (11:44)
--- NOTE | 2017-07-22 11:45 | NUR ---
REPORT CALLED TO ALEXUS AT [facility]. INFORMED HER OF THE NEW ANTIBIOTICS AND SUPPOSITORIES ORDERED.
[2017-07-22] MEDS ORDERED: AMOXICILLIN875 MG PO (12:15)
--- NOTE | 2017-07-22 13:42 | NUR ---
RECEIVED CALL BACK FROM ALEXUS AT [facility] AND STATED SHE SPOKE TO THE EDGER TAILER AND THEY WILL COME SUSTAINABILITY EXECUTIVE DIRECTOR THE PATIENT TODAY BUT IT WILL BE AFTER 1600. THANKED HER FOR CALLING BACK AND GIVING UPDATE. FAMILY AT BEDSIDE AND INFORMED THEY WILL PICK PATIENT UP.
--- NOTE | 2017-07-22 14:45 | NUR ---
PAGED AT THIS TIME TO REQUEST TYLENOL FOR PAIN. PATIENT IS COMPLAINING OF LEG CRAMPS. WAITING FOR [facility] TO PICK PATIENT UP.
--- NOTE | 2017-07-22 14:53 | NUR ---
NEW ORDER RECEIVED FOR TYLENOL AT THIS TIME.
--- NOTE | 2017-07-22 16:19 | NUR ---
CALLED [facility] AND SPOKE TO DIONNE THE PHARMACIST. CALLED PRESCRIPTION OVER FOR AMOXICILLIN 875MG PO BID X 7 DAYS AND ANUSOL-HC SUPP ONE PER RECTUM BID X 14 DAYS.
--- NOTE | 2017-07-22 16:20 | NUR ---
DISCHARGE INSTRUCTIONS PROVIDED TO PATIENT AND FAMILY. PATIENTS AND SON PRESENT DURING INSTRUCTIONS BEING PROVIDED. SEVERAL QUESTIONS TO WHY PATIENT WAS ON MAINTANENCE ATX AND STILL GOT AN INFECTION AND SHOULD SHE BE PLACED BACK ON THEM. THIS RADIO INSTALLER REFERRED THAT QUESTION TO PATIENTS PCP. NO FURTHER QUESTIONS ASKED. PATIENT LYING IN BED WAITING FOR [facility] TO PICK HER UP. NO IV TO REMOVE, PATIENT HAD ALREADY REMOVED TELEMETRY.
--- NOTE | 2017-07-22 16:40 | NUR ---
PATIENT LEFT UNIT AT THIS TIME VIA WHEELCHAIR. PATIENT DISCHARGED BACK TO [facility] VIA FACILITY TRANSPORTATION. PATIENT IN NO DISTRESS UPON LEAVING UNIT.
--- NOTE | 2017-07-22 21:04 | NUR ---
LATE ENTRY 1630 PATIENT FOR DISCHARGE BACK TO [facility]. AT THE BEDSIDE. PRIMARY NURSE, CAITLIN, HAS CALLED REPORT. CM DISCOVERED EPISODE SUMMARY REPORT ON FAX. CALLED [facility] TO VERIFY H/H PROVIDER. PATIENT IS ON ACTIVE SERVICE W/ [facility]. [place] SPOKE WITH ANALISA, THE HANDLE ASSEMBLER NURSE WITH [facility]. REVIEWED PATIENT'S HOSPITAL STAY. [facility] FAXED REFERRAL INFORMATION LATER. PATIENT WAS TRANSPORTED BACK TO [facility]. SHE WAS DISCHARGED W/ [facility] AND TRANSPORTED BY [facility] VIA WHEELCHAIR. [facility] WILL ADVISE [facility] OF VISIT DATE.
== END 2017-07-22 16:40 | disposition home or self-care (01) | DRG 394 ==
LOC: D.ER 13:50 → OBSVTIME 18:48 → D.M2 18:48
PROVIDERS: Internal Medicine Gastroenterology; Nurse Practitioner Family; ADMIT Family Medicine
PROC: 0DJD8ZZ Inspection of Lower Intestinal Tract, Via Natural or Artificial Opening Endoscopic (ICD-10-PCS; 2017-07-21)
PROC: 0DJ08ZZ Inspection of Upper Intestinal Tract, Via Natural or Artificial Opening Endoscopic (ICD-10-PCS; principal; 2017-07-21 09:30)
DX: K64.8 Other hemorrhoids (principal); F02.81 Dementia in other diseases classified elsewhere, unspecified severity, with behavioral disturbance; T83.511A Infection and inflammatory reaction due to indwelling urethral catheter, initial encounter; N39.0 Urinary tract infection, site not specified; G30.1 Alzheimer's disease with late onset; I48.91 Unspecified atrial fibrillation; Z79.01 Long term (current) use of anticoagulants; B95.2 Enterococcus as the cause of diseases classified elsewhere; K57.90 Diverticulosis of intestine, part unspecified, without perforation or abscess without bleeding; K21.9 Gastro-esophageal reflux disease without esophagitis; I10 Essential (primary) hypertension; K29.40 Chronic atrophic gastritis without bleeding; K44.9 Diaphragmatic hernia without obstruction or gangrene; Z95.2 Presence of prosthetic heart valve

== ENCOUNTER 2017-07-31 22:53 | Inpatient (IN) | payer MEDICARE, OTHER ==
[~2017-07-31] VITALS: Ht 177.8 cm; Wt 89.3 kg
[~2017-07-31 22:53] MED LIST changes: +AMOXICILLIN875 MG PO; +ANUSOL-HC25 MG RC; +ATIVAN0.5 MG PO
[2017-07-31 23:41] LABS: BASOPHILS 0.3 % (0-2); EOSINOPHILS 0.3 % (0-7); HEMATOCRIT 36.1 % (36.0-48.0); HEMOGLOBIN 11.8 g/dL (12-16); IMMATURE GRANULOCYTES 0.2 % (0-5); LYMPHOCYTES 23.8 % (15-50); MCH 32.6 pg (26.0-34.0); MCHC 32.7 g/dL (31.0-37.0); MCV 99.7 fL (80.0-100.0); MEAN PLATELET VOLUME 9.3 fL (7.4-10.4); MONOCYTES 9.1 % (2-11); NEUTROPHILS 66.3 % (40-80); PLATELET COUNT 212 10x3/uL (130-400); RBC 3.62 10x6/uL (4.00-5.40); RDW 14.1 % (11.5-14.5); WBC 6.3 10x3/uL (4.8-10.8)
[2017-07-31 23:50] LABS: APTT 27.9 SECONDS (22.8-39.4); INR 1.39 (0.85-1.17)
[2017-08-01 00:02] LABS: ALBUMIN 3.3 g/dL (3.4-5.0); ALKALINE PHOSPHATASE 80 U/L (46-116); ALT (SGPT) 31 U/L (10-68); CALC OSMOLALITY 277 mosm/kg (275-300); CALCIUM 8.7 mg/dL (8.5-10.1); CARBON DIOXIDE 27.4 mmol/L (21.0-32.0); CHLORIDE - SERUM 99 mmol/L (98-107); CREATININE - SERUM 1.2 mg/dL (0.6-1.3); GLUCOSE 119 mg/dL (74-106); POTASSIUM - SERUM 3.8 mmol/L (3.5-5.1); SODIUM 136 mmol/L (136-145); UREA NITROGEN 26 mg/dL (7-18); eGFR NON AFRICAN AMERICAN 45 mL/min (90-120)
[2017-08-01 00:13] LABS: CKMB 1.6 U/L (0.0-3.6); CREATINE KINASE 242 UL (21-215); PRO BNP 4821 pg/mL (0-450)
[2017-08-01 00:17] LABS: APPEARANCE CLOUDY (CLEAR); BILIRUBIN NEGATIVE (NEGATIVE); COLOR YELLOW (YELLOW); GLUCOSE NEGATIVE (NEGATIVE); KETONE NEGATIVE (NEGATIVE); NITRITE NEGATIVE (NEGATIVE); PROTEIN TRACE mg/dL (NEGATIVE); UROBILINOGEN NORMAL (NORMAL)
[2017-08-01 00:18] LABS: BACTERIA MODERATE /hpf (NONE SEEN); EPITHELIAL CELLS 0-5 /hpf (0-5); RED CELLS - URINE 0-5 /hpf (0-5); YEAST >1+ /hpf (NONE SEEN)
[2017-08-01 04:00] VITALS: BP 114/76
--- NOTE | 2017-08-01 04:15 | NUR ---
RECV'D PT TO ROOM 2211 VIA ER STRETCHER OCCOMPAINED BY ER STAFF AND SPOUSE. PT CONFUSED, UNABLE TO ANSWER QUESTIONS AT THIS TIME. 02 @3L VIA WA. CHRONIC GAGNON TO BEDSIDE. PT VERY WEAK AT THIS TIME, X2 ASSIST. SPOUSE AT BEDSIDE. BOTH PT AND SPOUSE ARE HO-CHUNK, HISTORY IS VAGUE ON DETAILS. FALL PRECAUTIONS IN PLACE, CALL LIGHT IN REACH. SPOUSE STATED HE WILL BE STAYING UNTIL HE SPEAKS WITH THE DOCTOR. WAITING FOR OFFICE CORRESPONDENT. WILL CONTINUE TO MONITOR.
[2017-08-01 04:28] VITALS: BP 114/58; BMI 29.6
[2017-08-01 06:48] LABS: CKMB 3.1 U/L (0.0-3.6)
[2017-08-01 07:14] LABS: CREATINE KINASE 323 UL (21-215)
[2017-08-01 07:15] LABS: TROPONIN-I 0.106 ng/mL (0.000-0.060)
[2017-08-01 07:56] VITALS: BP 90/50
[2017-08-01 09:46] LABS: BASOPHILS 0.5 % (0-2); EOSINOPHILS 0.5 % (0-7); HEMATOCRIT 31.4 % (36.0-48.0); HEMOGLOBIN 10.4 g/dL (12-16); IMMATURE GRANULOCYTES 0.2 % (0-5); LYMPHOCYTES 9.8 % (15-50); MCH 32.9 pg (26.0-34.0); MCHC 33.1 g/dL (31.0-37.0); MCV 99.4 fL (80.0-100.0); MEAN PLATELET VOLUME 9.4 fL (7.4-10.4); MONOCYTES 9.8 % (2-11); NEUTROPHILS 79.2 % (40-80); PLATELET COUNT 198 10x3/uL (130-400); RBC 3.16 10x6/uL (4.00-5.40); RDW 14.2 % (11.5-14.5)
[2017-08-01 09:47] LABS: WBC 4.1 10x3/uL (4.8-10.8)
[2017-08-01 11:48] VITALS: BP 90/54
[2017-08-01 12:04] LABS: CKMB 5.7 U/L (0.0-3.6)
[2017-08-01 12:05] LABS: CREATINE KINASE 536 UL (21-215); TROPONIN-I 0.133 ng/mL (0.000-0.060)
[2017-08-01 13:33] VITALS: Ht 177.8 cm; Wt 89.3 kg
[2017-08-01 15:15] VITALS: BP 105/60
--- NOTE | 2017-08-01 16:02 | NUR ---
NOTIFIED THAT PATIENT'S SBP HAS BEEN 90 TODAY, ASKED HIM ABOUT THE ORDER OF LASIX 40MG IV. HE STATED "40MG OF LASIX IV WILL BE FINE."
[2017-08-01 18:40] LABS: CKMB 3.9 U/L (0.0-3.6); CREATINE KINASE 663 UL (21-215)
[2017-08-01 18:44] LABS: TROPONIN-I 0.119 ng/mL (0.000-0.060)
[2017-08-01 20:00] VITALS: BP 111/53
[2017-08-02 04:00] VITALS: BP 109/63
[2017-08-02 06:50] LABS: BASOPHILS 0.3 % (0-2); EOSINOPHILS 0 % (0-7); HEMATOCRIT 36.9 % (36.0-48.0); LYMPHOCYTES 16.3 % (15-50); MCH 32.3 pg (26.0-34.0); MCHC 32.5 g/dL (31.0-37.0); MCV 99.2 fL (80.0-100.0); MEAN PLATELET VOLUME 8.7 fL (7.4-10.4); NEUTROPHILS 71.4 % (40-80); PLATELET COUNT 173 10x3/uL (130-400); RBC 3.72 10x6/uL (4.00-5.40); WBC 3.3 10x3/uL (4.8-10.8)
[2017-08-02 06:57] LABS: INR 1.27 (0.85-1.17); PROTIME 15.8 SECONDS (11.6-15.0)
[2017-08-02 07:12] LABS: ALBUMIN 2.6 g/dL (3.4-5.0); ANION GAP 9.8 mmol/L (8-16); BILIRUBIN - TOTAL 0.4 mg/dL (0.2-1.3); CALCIUM 8.4 mg/dL (8.5-10.1); CARBON DIOXIDE 31.7 mmol/L (21.0-32.0); CREATININE - SERUM 1.1 mg/dL (0.6-1.3); POTASSIUM - SERUM 3.5 mmol/L (3.5-5.1); PROTEIN - SERUM 5.8 g/dL (6.4-8.2)
--- NOTE | 2017-08-02 07:50 | NUR ---
ASSESSMENT COMPLETE. SL TO R FA PATENT. O2 3L NC IN USE. CONSTRUCTION SALES REPRESENTATIVE SHOWING AFIB 88 PER TECH. GAGNON PATENT DRAINING YELLOW URINE. BED ALARM IN USE. FAMILY AT BEDSIDE. COMPLAINING OF LEG CRAMPS. BRUISING NOTED TO LLE.
[2017-08-02 08:49] VITALS: BP 107/53
--- NOTE | 2017-08-02 12:00 | NUR ---
VISITING WITH FAMILY. DENIES ANY NEEDS AT THIS TIME.
[2017-08-02 13:46] VITALS: BP 111/58
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
[2017-08-02 15:50] VITALS: BP 134/50
--- NOTE | 2017-08-02 18:05 | NUR ---
NO CHANGES NOTED AT PRESENT.
--- NOTE | 2017-08-02 19:27 | NUR ---
REC'D. IN BED. BED ARMED. REMAINS CONFUSED TO PLACE TIME AND SITUATION. WILL CONTINUE TO MONITOR FOR ANY CHGES AND FOLLOW CURRENT PLAN OF CARE.
--- NOTE | 2017-08-02 19:39 | NUR ---
OT NOTE: PT COMPLETED BED MOB WITH MOD A. PT COMPLETED BUE AROM EXS FOR INCREASED I WITH ADLS. PT COMPLETED SIMPLE GROOMING WITH MIN A. THANK YOU, JOSE DE JESUS KAM/Sandie
[2017-08-02 20:00] VITALS: BP 96/50
--- NOTE | 2017-08-03 02:00 | NUR ---
PT IN BED WITH NO DISTRESS. RESPIRATIONS EVEN AND UNLABORED. SIDE RAILS X 2. BED LOW. CALL LIGHT IN REACH.
[2017-08-03 04:00] VITALS: BP 146/53
[2017-08-03 06:23] LABS: HEMATOCRIT 38.4 % (36.0-48.0); HEMOGLOBIN 12.8 g/dL (12-16); MCH 32.5 pg (26.0-34.0); MCHC 33.3 g/dL (31.0-37.0); MCV 97.5 fL (80.0-100.0); MEAN PLATELET VOLUME 9.3 fL (7.4-10.4); RBC 3.94 10x6/uL (4.00-5.40); RDW 13.4 % (11.5-14.5)
[2017-08-03 06:24] LABS: PLATELET COUNT 226 10x3/uL (130-400); WBC 2.3 10x3/uL (4.8-10.8)
[2017-08-03 06:46] LABS: ALBUMIN 2.8 g/dL (3.4-5.0); BILIRUBIN - TOTAL 0.39 mg/dL (0.2-1.3); CALCIUM 8.8 mg/dL (8.5-10.1); CARBON DIOXIDE 33.2 mmol/L (21.0-32.0); CREATININE - SERUM 1.3 mg/dL (0.6-1.3); POTASSIUM - SERUM 3.2 mmol/L (3.5-5.1); PROTEIN - SERUM 6.5 g/dL (6.4-8.2)
[2017-08-03 06:57] LABS: LYMPHOCYTES 19 % (15-50); MONOCYTES 2 % (2-11); NEUTROPHILS 78 % (40-80); PLATELET ESTIMATE NORMAL
[2017-08-03 07:08] LABS: INR 1.52 (0.85-1.17); PROTIME 18.3 SECONDS (11.6-15.0)
--- NOTE | 2017-08-03 07:50 | NUR ---
ASSESSMENT COMPLETE. SL TO L WRIST. O2 2L NC IN USE. ROTARY DRIER OPERATOR SHOWING AFIB 88 PER TECH. BED ALARM IN USE. GAGNON PATENT DRAINING YELLOW URINE.
[2017-08-03 09:03] VITALS: BP 90/57
--- NOTE | 2017-08-03 10:13 | NUR ---
OT NOTE: PERFORMED BED MOB WITH MOD ASSIST FOR ROLLING SIDE TO SIDE; MAX ASSIST FOR SUPINE TO SIT. PERFORMED STATIC SITTING ON EDGE OF BED WITH MIN ASSIST FOR BALANCE. PERFORMED UE AND LE EXS WITH BOTH VERBAL AND TACTILE CUES..PT VERY APRAXIC AND MODERATE COORDINATION DEFECITS WITH BOTH EXS AND ADLS. PT FATIGUED QUICKLY AND CONTINUD TO REQUEST TO LIE DOWN.. EASILY REDIRECTED AND WAS ABLE TO TOLERATE APPROX 12 MIN ON EDGE OF BED...COMPLETED REMAINDER OF EXS IN SUPINE
--- NOTE | 2017-08-03 10:51 | NUR ---
CM SPOKE TO OMEGA AT [facility] PER THE REQUEST OF ABOUT PATIENT GOING OUT THERE AT DISCHARGE. INFORMATION FAXED TO OMEGA AT ([phone]) [facility] WILL CONTINUE TO FOLLOW AND ASSIST WITH DISCHARGE PLANNING NEEDS
--- NOTE | 2017-08-03 12:00 | NUR ---
NO CHANGES NOTED AT PRESENT.
[2017-08-03 12:32] VITALS: BP 87/46
[2017-08-03 16:48] VITALS: BP 89/52
--- NOTE | 2017-08-03 18:09 | NUR ---
OCCASIONALLY YELLING OUT HELP ME. REFUSING TO EAT DINNER. ONLY WOULD EAT PEACHES. BED ALARM IN USE.
--- NOTE | 2017-08-03 19:39 | NUR ---
OT NOTE: PT COMPLETED BUE AROM EXS FOR INCREASED AX TOLERANCE. PT COMPLETED GROOMING WITH EXTENSIVE CUES FOR TASK COMPLETION. THANK YOU, JOSE DE JESUS KAM/Sandie
[2017-08-03 20:00] VITALS: BP 96/52
[2017-08-04 00:43] VITALS: BP 98/49
[2017-08-04 04:00] VITALS: BP 103/60
[2017-08-04 04:39] VITALS: BP 90/60
--- NOTE | 2017-08-04 07:30 | NUR ---
AWAKE AND ALERT. ORIENTED X3. NO C/O THIS AM. STATED SHE REALLY WANTS TO GO HOME. LUNGS ARE CLEAR WITH FAINT CRACKLES IN LEFT LOWER LOBE, DENIES COUGH. SKIN IS INTACT WITHOUT REDNESS. NO IV AT THIS TIME. DENIES NEEDS.
[2017-08-04 09:30] VITALS: BP 125/77
--- NOTE | 2017-08-04 10:00 | NUR ---
UP TO CHAIR AT BEDSIDE MAX ASSIST OF ONE. CONTINUES CONFUSED AT THIS TIME.
--- NOTE | 2017-08-04 12:15 | NUR ---
LUNCH SERVED IN ROOM. REFUSED TO EAT AT THIS TIME. VERY CONFUSED AND TALKING ABOUT RUPALI, HER . DENIES NEEDS.
[2017-08-04 14:13] VITALS: BP 136/68
--- NOTE | 2017-08-04 16:00 | NUR ---
VERY CONFUSED AND AGITATED AT THIS TIME. REFUSED LOVENOX. WILL MONITOR.
[2017-08-04 20:00] VITALS: BP 112/65
--- NOTE | 2017-08-04 21:08 | NUR ---
GIVEN PT SNACK, APPLE SAUCE. STATES SHE LIKE APPLE SAUCE.
[2017-08-05] VITALS: BP 103/59
--- NOTE | 2017-08-05 00:42 | NUR ---
PATIENT RESTING IN BED WITH EYES CLOSED AND NO VISIBLE SIGNS OF DISTRESS. BED IN THE LOWEST POSITION AND CALL LIGHT WITHIN REACH.
[2017-08-05 04:00] VITALS: BP 93/52
--- NOTE | 2017-08-05 04:10 | NUR ---
REST IN BED, EYE CLOSE, BED LOW, CALL LIGHT IN REACH.
--- NOTE | 2017-08-05 04:18 | NUR ---
IV INSERTED TO RIGHT FA. 22 GAUGE X3 STICKS. GOOD BLOOD RETURN NOTED.
[2017-08-05 05:46] LABS: BASOPHILS 0.2 % (0-2); EOSINOPHILS 0 % (0-7); HEMATOCRIT 39.1 % (36.0-48.0); HEMOGLOBIN 13.1 g/dL (12-16); IMMATURE GRANULOCYTES 0.4 % (0-5); MCH 32.5 pg (26.0-34.0); MCHC 33.5 g/dL (31.0-37.0); MEAN PLATELET VOLUME 9.9 fL (7.4-10.4); MONOCYTES 9.9 % (2-11); NEUTROPHILS 77.5 % (40-80); PLATELET COUNT 221 10x3/uL (130-400); RBC 4.03 10x6/uL (4.00-5.40); RDW 13.6 % (11.5-14.5); WBC 5.2 10x3/uL (4.8-10.8)
--- NOTE | 2017-08-05 05:53 | NUR ---
LAYING ON RIGHT SIDE, HOB 35 DEGREE, SIDERAIL X 2.
[2017-08-05 05:54] LABS: INR 3.6 (0.85-1.17); PROTIME 36.3 SECONDS (11.6-15.0)
[2017-08-05 06:16] LABS: ALBUMIN 2.8 g/dL (3.4-5.0); ANION GAP 13.2 mmol/L (8-16); BILIRUBIN - TOTAL 0.51 mg/dL (0.2-1.3); CALCIUM 9.5 mg/dL (8.5-10.1); CARBON DIOXIDE 31.2 mmol/L (21.0-32.0); CREATININE - SERUM 1.9 mg/dL (0.6-1.3); PROTEIN - SERUM 6.2 g/dL (6.4-8.2)
[2017-08-05 06:23] LABS: POTASSIUM - SERUM 4.4 mmol/L (3.5-5.1)
--- NOTE | 2017-08-05 07:30 | NUR ---
AWAKE AND ALERT. ORIENTED TO SELF ONLY. ATTEMPTS TO REORIENT WITHOUT SUCCESS. LUNGS ARE CLEAR BUT DIMINISHED IN LOWER LOBES, OCCASSIONAL DRY COUGH NOTED. SKIN IS INTACT WITHOUT REDNESS EXCEPT SOME YEASTLY LOOKING REDNESS IN MOUSTAPHA AREA. WILL GET NYSTATIN POWDER FOR SAME. IV TO LEFT HAND IS PATNET WITHOUT REDNESS AT INSERTION SITE. NO NEEDS NOTED.
[2017-08-05 09:20] VITALS: BP 118/64
--- NOTE | 2017-08-05 10:00 | NUR ---
TOOK AM MEDS WITHOUT DIFFICULTY. REFUSED TO EAT AT THIS TIME.
--- NOTE | 2017-08-05 11:07 | NUR ---
INCONTINENT OF URINE. SKIN CARE PER STAFF. LINENS CHANGED. REPOSITIONED IN BED FOR COMFORT.
--- NOTE | 2017-08-05 12:30 | NUR ---
REFUSED LUNCH TRAY. SON HERE AND STATED SHE SAID SHE WASN'T GONNA EAT ANY MORE. WILL MONITOR
[2017-08-05 13:06] VITALS: BP 119/101
[2017-08-05 16:55] VITALS: BP 96/60
--- NOTE | 2017-08-05 18:23 | NUR ---
REFUSED TO EAT ANY SUPPER WITH STAFF TRYING TO FEED HER. NO CHANGES NOTED.
[2017-08-05 20:00] VITALS: BP 163/89
[2017-08-06] VITALS: BP 140/71
[2017-08-06 04:00] VITALS: BP 118/72
[2017-08-06 05:24] LABS: BASOPHILS 0.1 % (0-2); EOSINOPHILS 0 % (0-7); HEMATOCRIT 39.2 % (36.0-48.0); IMMATURE GRANULOCYTES 0.2 % (0-5); LYMPHOCYTES 9.5 % (15-50); MCH 32.3 pg (26.0-34.0); MCHC 33.2 g/dL (31.0-37.0); MCV 97.3 fL (80.0-100.0); MEAN PLATELET VOLUME 9.9 fL (7.4-10.4); MONOCYTES 6.9 % (2-11); NEUTROPHILS 83.3 % (40-80); PLATELET COUNT 206 10x3/uL (130-400); RBC 4.03 10x6/uL (4.00-5.40); RDW 13.7 % (11.5-14.5)
--- NOTE | 2017-08-06 05:30 | NUR ---
PT SLEPT ALL OF SHIFT. WOKE UP EACH TIME FOR MEDS THEN WENT BACK TO SLEEP. PT INCONTINENT OF BLADDER. COMPLETE BED CHANGE AND BED BATH GIVEN. NO OTHER NEEDS. WILL CONTINUE TO MONITOR.
[2017-08-06 05:31] LABS: WBC 8.1 10x3/uL (4.8-10.8)
[2017-08-06 05:35] LABS: INR 3.66 (0.85-1.17); PROTIME 36.8 SECONDS (11.6-15.0)
[2017-08-06 06:04] LABS: ALBUMIN 2.8 g/dL (3.4-5.0); ANION GAP 12.5 mmol/L (8-16); BILIRUBIN - TOTAL 0.64 mg/dL (0.2-1.3); CALCIUM 8.6 mg/dL (8.5-10.1); CARBON DIOXIDE 33.7 mmol/L (21.0-32.0); CREATININE - SERUM 1.7 mg/dL (0.6-1.3); POTASSIUM - SERUM 4.2 mmol/L (3.5-5.1); PROTEIN - SERUM 5.8 g/dL (6.4-8.2)
[2017-08-06 08:14] VITALS: BP 134/83
--- NOTE | 2017-08-06 10:20 | NUR ---
16FR GAGNON INSERTED USING STERILE TECHNIQUE. IMMEDIATE RETURN OF 350CC'S OF CLEAR YELLOW URINE. STAT LOCK APPLIED TO R LEG. DRAINING TO GRAVITY. BED LOW, CALL LIGHT IN REACH, CPOC.
[2017-08-06 11:36] LABS: APPEARANCE HAZY (CLEAR); BILIRUBIN NEGATIVE (NEGATIVE); COLOR YELLOW (YELLOW); GLUCOSE NEGATIVE (NEGATIVE); KETONE NEGATIVE (NEGATIVE); NITRITE NEGATIVE (NEGATIVE); PROTEIN TRACE mg/dL (NEGATIVE); UROBILINOGEN NORMAL (NORMAL)
[2017-08-06 11:37] LABS: EPITHELIAL CELLS 0-5 /hpf (0-5); RED CELLS - URINE 0-5 /hpf (0-5)
[2017-08-06 11:38] LABS: BACTERIA FEW /hpf (NONE SEEN); YEAST <1+ /hpf (NONE SEEN)
[2017-08-06 12:13] VITALS: BP 96/55
--- NOTE | 2017-08-06 14:29 | NUR ---
RESTING,WITHOUT DISTRESS.DOOR OPEN
[2017-08-06 15:33] VITALS: BP 114/71
[2017-08-06 20:00] VITALS: BP 171/70
[2017-08-07] VITALS: BP 117/53
[2017-08-07 04:00] VITALS: BP 119/69
[2017-08-07 05:46] LABS: BASOPHILS 0 % (0-2); EOSINOPHILS 0 % (0-7); HEMATOCRIT 41.4 % (36.0-48.0); HEMOGLOBIN 13.4 g/dL (12-16); IMMATURE GRANULOCYTES 0.3 % (0-5); LYMPHOCYTES 8.7 % (15-50); MCH 32.1 pg (26.0-34.0); MCHC 32.4 g/dL (31.0-37.0); MEAN PLATELET VOLUME 9.9 fL (7.4-10.4); MONOCYTES 9.4 % (2-11); NEUTROPHILS 81.6 % (40-80); PLATELET COUNT 219 10x3/uL (130-400); RBC 4.17 10x6/uL (4.00-5.40); RDW 13.8 % (11.5-14.5); WBC 9.1 10x3/uL (4.8-10.8)
[2017-08-07 05:49] LABS: MCV 99.3 fL (80.0-100.0)
[2017-08-07 06:09] LABS: ANION GAP 12.3 mmol/L (8-16); CALCIUM 9.5 mg/dL (8.5-10.1); CARBON DIOXIDE 35.1 mmol/L (21.0-32.0); CREATININE - SERUM 1.7 mg/dL (0.6-1.3)
[2017-08-07 06:10] LABS: INR 3.22 (0.85-1.17); PROTIME 33.3 SECONDS (11.6-15.0)
[2017-08-07 06:12] LABS: POTASSIUM - SERUM 3.4 mmol/L (3.5-5.1)
--- NOTE | 2017-08-07 07:10 | NUR ---
ASSESSMENT COMPLETE. SL TO R FA. ITALIAN LECTURER SHOWING AFIB 90 PER TECH. GAGNON PATENT DRAINING YELLOW URINE. UNRESPONSIVE TO VERBAL OR PAINFUL STIMULI. O2 4L IN USE. SCATTERED BRUISING NOTED TO BILAT ARMS AND LEGS.
[2017-08-07 07:50] VITALS: BP 118/67
--- NOTE | 2017-08-07 12:00 | NUR ---
FAMILY AT BEDSIDE. COUGHING NOTED AFTER DRINKING WATER. BRIEFLY OPENED EYES FOR ABOUT A MINUTE THEN CLOSED EYES AND WOULDN'T OPEN THEM WITH COMMAND.
--- NOTE | 2017-08-07 14:04 | NUR ---
RETURNED TO ROOM FROM CT.
--- NOTE | 2017-08-07 14:19 | NUR ---
INCREASED FI02 TO 37% FI02. PT SPO2 89-90 PT APPEARS TO BE RESTING COMFORTABLY. EQUALATERAL EXCURSIONS BILATERAL CLEAR AND DIMINISHED BREATH SOUNDS TO ANTERIOR ASPECT OF AUSCULATATION NO S/S OF IMMEDIATE REST DISTRESS
[2017-08-07 15:30] LABS: APPEARANCE CLEAR (CLEAR); BILIRUBIN NEGATIVE (NEGATIVE); COLOR YELLOW (YELLOW); GLUCOSE NEGATIVE (NEGATIVE); KETONE NEGATIVE (NEGATIVE); NITRITE NEGATIVE (NEGATIVE); PROTEIN TRACE mg/dL (NEGATIVE); SPECIFIC GRAVITY 1.015 (1.005-1.020); UROBILINOGEN NORMAL (NORMAL)
[2017-08-07 15:32] LABS: BACTERIA MODERATE /hpf (NONE SEEN); RED CELLS - URINE 0-5 /hpf (0-5); WHITE CELLS - URINE 25-50 /hpf (0-5)
--- NOTE | 2017-08-07 17:00 | NUR ---
RESTING QUIETLY AT THIS TIME. IV TO R FA PATENT. D5 1/2 INFUSING AT 75 CC/HR VIA PUMP. OCCASIONALLY WILL OPEN RIGHT EYE. SWELLING NOTED AROUND EYES.
[2017-08-07 17:17] VITALS: BP 105/64
--- NOTE | 2017-08-07 18:20 | NUR ---
LATE ENTRY 1409 PATIENT' SON, MAURA, STOPPED CM IN THE [address] WAY AND WANTED TO KNOW IF HIS MOTHER WAS BEING DISCHARGED TO [facility] TODAY. [place] ADVISED I DID NOT HAVE ORDERS BUT WOULD CHECK ON MD PLAN. [place] SPOKE WITH PRIMARY NURSE, MARISA. SHE STATED THE OUTER DIAMETER TECHNICIAN AND MD HAD SPOKEN WITH THE FAMILY AT THE BEDSIDE. CHART REVIEWED FOR MD PLAN. K[place]ON CALLED [phone], THE FACILITY, AND SPOKE WITH CUBA. PROVIDED UPDATE. THE PATIENT HAD A CHANGE IN LOC. TEST PENDING. HAD SPIKED A TEMP 100.9. CULTURES PENDING. CONT IVAB THERAPY. AWAIT PULMONARY INPUT REGARDING CXR RESULTS AND PLAN. MONITOR LABS. [facility] AWAIT PATIENT'S DISCHARGE. PLANNING ADMIT. K[place]STON WENT TO PATIENT'S ROOM. SPOKE WITH THE SON, MUARA, AND THE . THEY HAD NO FURTHER QUESTIONS AT THAT TIME.
--- NOTE | 2017-08-07 19:25 | NUR ---
RECIEVED SHIFT REPORT. PT IS LYING IN BED. PT IS ONLY RESPONSIVE TO STIMULI AT THIS TIME. IV IS PATENT AND FLUIDS ARE RUNNING PER ORDER. O2 @ 4 PER NASAL CANNULA PLACED IN MOUTH. GAGNON IS DRAINING URINE BY GRAVITY. NO DISTRESS IS NOTED AT THIS TIME. PT REQUIRES ASSISTANCE TURNING IN BED FOR COMFORT AND SKIN CARE. WILL CONTINUE TO MONITOR. SIDE RAILS ARE UP X 2. BED IS IN LOWEST POSITION. BED ALARM IS ON FOR SAFETY. CALL LIGHT IS WITHIN REACH.
[2017-08-07 20:00] VITALS: BP 104/47
--- NOTE | 2017-08-07 21:56 | NUR ---
SHIFT ASSESSMENT COMPLETED. NYSTAT POWDER ADMINISTERED PER ORDER. SCHEDULED PO PILLS HELD AT THIS TIME DUE TO PT INABILITY TO SWALLOW THEM. WILL MONITOR. SIDE RAILS X 2. BED LOW. BED ALARM ON. CALL LIGHT IN REACH.
[2017-08-08 04:00] VITALS: BP 92/52
[2017-08-08 07:26] LABS: BASOPHILS 0 % (0-2); EOSINOPHILS 0.2 % (0-7); HEMATOCRIT 41.1 % (36.0-48.0); IMMATURE GRANULOCYTES 0.6 % (0-5); LYMPHOCYTES 7.9 % (15-50); MCH 31.9 pg (26.0-34.0); MCHC 31.6 g/dL (31.0-37.0); MCV 100.7 fL (80.0-100.0); MEAN PLATELET VOLUME 9.9 fL (7.4-10.4); MONOCYTES 7.5 % (2-11); NEUTROPHILS 83.8 % (40-80); PLATELET COUNT 216 10x3/uL (130-400); RBC 4.08 10x6/uL (4.00-5.40); RDW 13.9 % (11.5-14.5); WBC 11.2 10x3/uL (4.8-10.8)
[2017-08-08 07:31] LABS: ALBUMIN 2.5 g/dL (3.4-5.0); ANION GAP 7.3 mmol/L (8-16); BILIRUBIN - TOTAL 0.74 mg/dL (0.2-1.3); CARBON DIOXIDE 37.2 mmol/L (21.0-32.0); CREATININE - SERUM 1.8 mg/dL (0.6-1.3); POTASSIUM - SERUM 3.5 mmol/L (3.5-5.1); PROTEIN - SERUM 6.1 g/dL (6.4-8.2)
--- NOTE | 2017-08-08 08:07 | NUR ---
PT SEEN. OXYGEN IN MOUTH FOR DELIVERY DUE TO MOUTH BREATHER. ALL FALL PRECAUTIONS ARE IN PLACE. GAGNON NOTED. CALL LIGHT IN REACH
--- NOTE | 2017-08-08 08:09 | NUR ---
PT UNABLE TO GENERATE VITAL CAPACITY TO EXPELL SPUTUM SAMPLE. ORDER 7 DAYS OLD
[2017-08-08 08:20] VITALS: BP 104/57
--- NOTE | 2017-08-08 10:18 | NUR ---
OT NOTE: VERY DIFFICULT TO AROUSE; ELEVATED HEAD OF BED AND ATTEMPTED TO WASH FACE WITH WET WASHCLOTH TO IMPROVE ALERTNESS. PT ONLY OPENED EYES FOR A FEW SECONDS BUT WAS UNABLE TO FOLLOW ANY COMMANDS. CLEANED MOUTH AND EYES WITH WASHCLOTH, BUT AGAIN, ALERTNESS WAS SHORT LIVED. WILL CONT TO FOLLOW. PRERNA JACKSON, OTR/L
[2017-08-08 11:37] VITALS: BP 105/66
--- NOTE | 2017-08-08 12:38 | NUR ---
NUTRITION F/U CHART REVIEWED. PT WITH NO RECENT PO INTAKE. NOTE PROCALAMINE TO START @ 50 CC/HR. WILL PROVIDE 294 KCAL, 36 GM PROTEIN PER DAY. NOTE [facility]. RD FOLLOWING
--- NOTE | 2017-08-08 13:25 | NUR ---
DR PARISH SPOKE WITH CM AND STATED THAT THE FAMILY WANTS HOSPICE. REFERRAL SENT TO [facility]. FAMILY IN ROOM AT BEDSIDE AWAITING HOSPICE NURSE
--- NOTE | 2017-08-08 13:46 | NUR ---
PT FAMILY AT BEDSIDE AGREED TO HOSPICE CARE AWAITING ADMISSION TO HOSPICE CARE.
--- NOTE | 2017-08-08 15:02 | NUR ---
PATIENT WAS NOT GIP APPROPRIATE PER [facility], FAMILY WOULD LIKE TO CONSULT [facility]. [facility] CALLED AND ORDER FAXED. [facility] WILL BE EHRE AT 5:30 TO MEET WITH FAMILY
--- NOTE | 2017-08-08 15:13 | NUR ---
PT NON RESPONSIVE IN BED HAS O2 AT 4LPM HOSPICE CONSULT.
[2017-08-08 16:00] VITALS: BP 108/61; BP 194/73
[2017-08-08 20:00] VITALS: BP 88/47
--- NOTE | 2017-08-08 21:00 | NUR ---
REPORT CALLED TO EFFIE OBANDO [facility].
--- NOTE | 2017-08-08 21:15 | NUR ---
[facility] CALLED FOR PT TRANSPORT AT THIS TIME.
--- NOTE | 2017-08-08 21:45 | NUR ---
[facility] HERE FOR TRANSPORT AT THIS TIME. SON PROVIDED WITH ROOM NUMBER.
--- NOTE | 2017-08-14 09:15 | EC ---
PATIENT:WINSTON HERMOSILLO DATE OF SERVICE: 08/01/17 SEX: F MEDICAL RECORD: [id number] DATE OF : 32 LOCATION:[facility] AGE OF PATIENT: 86 ADMISSION DATE: 08/01/17 REFERRING PHYSICIAN: INTERPRETING PHYSICIAN: JASON MCGILL MD ECHOCARDIOGRAM REPORT ECHO CHARGES 4 ECHO COMPLETE CLINICAL DIAGNOSIS: CHF HX OF CAD/CABG ECHOCARDIOGRAPHIC MEASUREMENTS (adult normal given) AC root (d.<3.7cm) 3.7 cm LV Septum d (<1.2 cm> 1.4 cm Valve Excursion cm LV Septum (systole) 1.6 cm Left Atria (s.<4.0cm> 3.7 cm LVPW d(<1.2cm) 1.4 cm RV (d.<2.3cm) 3.8 cm LVPW (sytole) 1.6 cm LV diastole(<5.6CM) 4.7 cm MV E-F(>70mm/sec) cm LV systole 2.9 cm LVOT Diameter 1.3 cm MV exc.(>10mm) cm Est.ejection fraction (50-75%) % Pericardial Effusion N DOPPLER: LVIT cm/sec A 49.0 cm/sec E 153 cm/sec LA cm/sec RVSP 59 mmHg LVOT 143 cm/sec AOP1/2T m/s Asc. Ao 291 cm/sec RVOT cm/sec RA cm/sec PA cm/sec AV Gradient Peak 33.78mmHg AV Mean 15.57mmHg AV Area 1.1 cm MV Gradient Peak 10.54mmHg MV Mean 3.13 mmHg MV Area 1.9 cm COMMENTS: Forestry Conservation Worker: 2 RADHA ZARATE Correspondence Dictator: 4 Dr. Mcgill TAPE# PACS DATE OF SERVICE: 08/01/2017 PROCEDURE: Transthoracic echocardiogram. FINDINGS: 1. Left ventricle is difficult to visualize in multiple views. However, overall the function appears to be hyperdynamic with ejection fraction of 65%. There does not appear to be any obvious regional wall motion abnormalities. Inflow characteristics are not indicative of diastolic dysfunction; however, is not readily obvious that this patient is not having a good atrial kick or ECHOCARDIOGRAM REPORT [id number] WINSTON HERMOSILLO inflow, so that maybe inaccurate. 2. The right ventricle is dilated. There is right ventricular hypertrophy. 3. Left atrium is upper limits of normal to mildly dilated. 4. Aortic valve is not well visualized. The peak pressure gradient across the aortic valve is 33 mmHg, appears to have mild to moderate aortic stenosis. 5. The mitral valve has mild mitral regurgitation. There is severe mitral annular calcification without evidence of mitral stenosis. 6. Tricuspid valve has moderate tricuspid regurgitation. The peak right ventricular systolic pressures are 50 to 55 mmHg. 7. Pericardium is normal. 8. Pulmonary valve is grossly normal. 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 TRANSINT:[id number] Voice Confirmation ID: [id number] DOCUMENT ID: [id number] 08/07/2017 Edited to correct date of service, dm. JASON MCGILL MD at 0915 CC: [id number] DICTATION DATE: 08/02/17 0802 SECURITY SYSTEM ADMINISTRATOR: 08/02/17 1030 DIS IN 08/08/17 [facility] [address] [place] [address]
== END 2017-08-08 21:50 | disposition home health service (06) | DRG 177 ==
LOC: D.ER 22:53 → OBSVTIME 08-01 03:44 → D.MS 08-01 03:44 → D.SDCHOLD 08-03 13:41 → D.MS 08-03 13:42
PROVIDERS: Emergency Medicine; Family Medicine; ADMIT Emergency Medicine
DX: J69.0 Pneumonitis due to inhalation of food and vomit (principal); G92 Toxic encephalopathy; F02.81 Dementia in other diseases classified elsewhere, unspecified severity, with behavioral disturbance; J44.1 Chronic obstructive pulmonary disease with (acute) exacerbation; I48.2 Chronic atrial fibrillation; Z79.01 Long term (current) use of anticoagulants; G30.1 Alzheimer's disease with late onset; I10 Essential (primary) hypertension; K21.9 Gastro-esophageal reflux disease without esophagitis; D64.9 Anemia, unspecified; Z66 Do not resuscitate; N28.9 Disorder of kidney and ureter, unspecified